=== PATIENT | female | born 1930 | race Caucasian/White ===

== ENCOUNTER → 2019-05-09 | Outpatient (CLI) | payer MEDICARE ==
--- NOTE | 2019-05-09 15:09 | US ---
EXAMINATION TYPE: US venous doppler duplex LE RT DATE OF EXAM: 05/09/2019 2:48 PM COMPARISON: NONE CLINICAL HISTORY: 88-year-old female M25.561 Pain in right knee. SIDE PERFORMED: Right TECHNIQUE: The lower extremity deep venous system is examined utilizing real time linear array sonog norman with graded compression, doppler sonography and color-flow sonography. VESSELS IMAGED: External Iliac Vein (EIV) Common Femoral Vein Deep Femoral Vein Greater Saphenous Vein * Femoral Vein Popliteal Vein Small Saphenous Vein * Proximal Calf Veins (* superficial vessels) GSV also scanned per order, negative for SVT. PTV's not seen due to edema. Right Leg: Otherwise, Negative for DVT. Preliminary results given to Dimitri at . IMPRESSION: No evidence for DVT within the right lower extremity imaged from the groin to the upper calf. Unable to adequately assess the posterior tibial veins due to soft tissue swelling.
== END | disposition home or self-care (01) ==
LOC: RADUSWWP 14:26
PROVIDERS: ATTEND Orthopaedic Surgery Sports Medicine
DX: M79.89 Other specified soft tissue disorders (principal); M17.11 Unilateral primary osteoarthritis, right knee

== ENCOUNTER 2019-06-15 06:25 | Day surgery (SDC) | payer MEDICARE ==
[~2019-06-15 06:25] MED LIST: ASPIRIN 325 MG TAB PO STA; SODIUM CHLORIDE 0.9% 1,000 ML in EMPTY BAG 1 BAG IV ONE
[2019-06-15] MEDS ORDERED: ALPRAZolam 0.25 MG TAB ONE (06:54)
[2019-06-15 07:19] LABS: Basophils # (A) 0.1 k/uL (0-0.2); Basophils % (A) 1 %; Eosinophils # (A) 0.3 k/uL (0-0.7); Eosinophils % (A) 5 %; HCT 38.6 % (34.0-46.0); Lymphocytes # (A) 1.7 k/uL (1.0-4.8); Lymphocytes % (A) 26 %; MCH 32.2 pg (25.0-35.0); MCHC 33.6 g/dL (31.0-37.0); Mean Platelet Volume 7.8; Monocytes # (A) 0.6 k/uL (0-1.0); Monocytes % (A) 9 %; Neutrophils # (A) 3.7 k/uL (1.3-7.7); Neutrophils % (A) 57 %; Platelet Count 240 k/uL (150-450); RBC 4.03 m/uL (3.80-5.40); RDW 14.9 % (11.5-15.5); WBC 6.4 k/uL (3.8-10.6)
[2019-06-15 07:39] LABS: African American GFR (CKD) >90 (>60 ml/min/1.73 sqM); Anion Gap 8 mmol/L; Blood Urea Nitrogen 20 mg/dL (7-17); Calcium 9.3 mg/dL (8.4-10.2); Carbon Dioxide 25 mmol/L (22-30); Chloride 103 mmol/L (98-107); Glucose 143 mg/dL (74-99); Non-African American GFR(CKD) 80 (>60 ml/min/1.73 sqM); Sodium 136 mmol/L (137-145)
[2019-06-15] MEDS: MIDAZOLAM PF (FBP) 2 MG/2 ML VIAL IV ONE ×3 (07:53→08:09)
[2019-06-15] MEDS ORDERED: HEPARIN SODIUM 1,000 UN/ML (10ML VL) IV ONE (07:59)
[2019-06-15] MEDS: HYDROmorphone 1 MG/ML 1 ML SYRINGE IVP ONE ×2 (08:49→08:51)
[2019-06-15] MEDS ORDERED: IOPAMIDOL-250 100ML BTL INTRAARTER ONE (09:33)
[2019-06-15] MEDS ORDERED: CLOPIDOGREL 75 MG TAB PO ONE (09:33)
[2019-06-15] MEDS ORDERED: LORATADINE 10 MG TAB PO PRN (09:35)
[2019-06-15] MEDS ORDERED: SODIUM CHLORIDE 0.9% 1,000 ML IV SCH (09:45)
--- NOTE | 2019-06-15 10:06 | AN ---
ANGIOGRAPHY REPORT PERCUTANEOUS PERIPHERAL INTERVENTION: DATE OF SERVICE: 06/15/2019 PERFORMING PHYSICIAN: Jose Angel Yost MD, Commissioned Sales Associate. PROCEDURE PERFORMED: 1. 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 2. Intravascular ultrasound IVUS of the left SFA. 3. Successful balloon angioplasty and stenting of the left SFA. 4. Selective left SFA and left popliteal angiogram. 5. Non selective left [id number]-[id number]-mhed angiogram. 6. Selective right common femoral artery angiogram. INDICATION: This is a pleasant 88-year-old female patient who sees Dr. Joaquin as well as Dr. Messer in the office as an outpatient with history of hypertension and dyslipidemia who was experiencing bilateral lower extremities intermittent claudication. The patient physically active. She is in good physical shape for her age. She continues to be symptomatic in term of intermittent claudication and the symptoms were limiting her activities. Because of that, she underwent a peripheral angiogram which revealed occluded left SFA and critical right SFA. Because of that, she was scheduled today to undergo a BALL WORKER of the left SFA. APPROACH: Right common femoral artery. COMPLICATION: None. LEVEL OF SEDATION: Moderate with sedation length of 94 minutes. PROCEDURE DESCRIPTION: After obtaining an informed consent, the patient was brought to the cardiac laboratory tech. The right common femoral artery was cannulated using micropuncture technique, and I placed initially a 6-C[place]ican 11 cm sheath. I did start anticoagulation with heparin and the patient was given 6000 units of heparin IV. Subsequently, I did select the left SFA using 0.035 Grayson Advantage wire with a 5- [place] Rim catheter. After that I did exchange my 11 cm 6-[place]ican sheath into 70 cm 6- [place] Raabe sheath. The tip of the Raabe sheath was positioned in the left common femoral artery. I did cross the chronic total occlusion of the left SFA using 018 Stata wire and a 018 morales tip Glidewire. After that, I did advance a 018 CXI catheter to the left popliteal and I did selective left popliteal angiogram to prove that I was in the true lumen. Subsequently, I did exchange my 018 gold tip Glidewire into [address] wire. I did intravascular ultrasound to assess if I was in the true lumen or not in the true lumen of the left SFA and the intravascular ultrasound showed that I was in the true lumen all the way. I did measure the diameter of the artery which is slightly above 6 mm. At that point. I did atherectomy of the left SFA using the CSI rotational atherectomy device at 1.5 mm pool. After that I did balloon angioplasty using 5 mm x 250 mm balloon. The following angiogram showed extensive area of dissection. Because of that, I decided to stent the whole SFA. I did deploy two 7 mm x 140 mm Zilver PTX stents in the distal and mid left SFA and in the proximal left SFA I placed 7 x 100 mm Zilver PTX. I post dilated the stent using 6 mm balloon with the following angiogram showing excellent angiographic results and the procedure at that point was completed without any complication. I did completion angiogram to assess below the knee and that showed great flow in the left anterior tibial artery. After that, I did exchange my long sheath into short sheath using 035 wire. I did after that selective right common femoral artery angiogram. The procedure was completed without any complication. POSTPROCEDURE MANAGEMENT: 1. Dual anti-platelet therapy. 2. Risk factors modifications. 3. Follow up with the patient. MMODL / IJN: [id number] /
--- NOTE | 2019-06-15 10:10 | IR ---
EXAMINATION TYPE: IR aircraft captain femoral popliteal DATE OF EXAM: 06/15/2019 COMPARISON: NONE HISTORY: Fluoroscopy time. Fluoroscopy was provided to the referring clinician.
[2019-06-15 12:28] VITALS: RESP 18
[2019-06-15 12:31] VITALS: BMI 28.0
[2019-06-15] MEDS: METHENAMINE HIPPURATE 1 GM PO SCH (20:42)
[2019-06-15] MEDS: VIT A,C & E-LUTEIN-MINERALS 1 EACH TAB PO SCH (20:46)
[2019-06-15] MEDS: ASPIRIN 81 MG PO SCH (20:46)
[2019-06-15] MEDS ORDERED: amLODIPine 2.5 MG TAB PO SCH (21:00)
[2019-06-16 07:00] LABS: Basophils % (A) 0 %; Eosinophils # (A) 0.2 k/uL (0-0.7); Eosinophils % (A) 2 %; HCT 38.7 % (34.0-46.0); HGB 12.7 gm/dL (11.4-16.0); Lymphocytes # (A) 1.1 k/uL (1.0-4.8); Lymphocytes % (A) 13 %; MCH 31.5 pg (25.0-35.0); MCHC 32.9 g/dL (31.0-37.0); MCV 95.9 fL (80.0-100.0); Mean Platelet Volume 7.1; Monocytes # (A) 0.6 k/uL (0-1.0); Monocytes % (A) 7 %; Neutrophils # (A) 6.6 k/uL (1.3-7.7); Neutrophils % (A) 76 %; Platelet Count 206 k/uL (150-450); RBC 4.04 m/uL (3.80-5.40); RDW 13.3 % (11.5-15.5); WBC 8.7 k/uL (3.8-10.6)
[2019-06-16 07:21] LABS: African American GFR (CKD) >90 (>60 ml/min/1.73 sqM); Anion Gap 7 mmol/L; Blood Urea Nitrogen 15 mg/dL (7-17); Calcium 8.9 mg/dL (8.4-10.2); Carbon Dioxide 25 mmol/L (22-30); Chloride 103 mmol/L (98-107); Glucose 135 mg/dL (74-99); Non-African American GFR(CKD) 81 (>60 ml/min/1.73 sqM); Sodium 135 mmol/L (137-145)
[2019-06-16] MEDS ORDERED: PANTOPRAZOLE 40 MG TABLET PO SCH (07:30)
--- NOTE | 2019-06-16 08:31 | P.PN ---
Subjective Progress Note Date: 06/16/19 Discharge note This is a pleasant 88-year-old female who follows with in the office, history of hypertension, hyperlipidemia who was experiencing bilateral lower extremity intermittent claudication, patient is physically active. She underwent a peripheral angiogram which revealed occluded left SFA and critical right SFA and because of that she was admitted to the hospital and underwent successful balloon angioplasty and stenting of the left SFA. He was seen and examined this morning, feels well, hemodynamically she is stable. White blood cell count 8.7, hemoglobin 12.7, platelet count 206. Sodium 135, potassium 4.0, BUN 15 and creatinine 0.6. Objective - Vital Signs Vital signs: Vital Signs Temp 98.1 F 06/16/19 04:00 Pulse 80 06/16/19 04:00 Resp 18 06/16/19 04:00 BP 136/75 06/16/19 04:00 Pulse Ox 97 06/16/19 04:00 Intake & Output 06/15/19 06/16/19 06/16/19 18:59 06:59 18:59 Intake Total 640 Output Total 700 Balance -60 Weight 72.2 kg Intake: IV 280 Sodium Chloride 0.9% 1, 0 000 ml @ 75 mls/hr IV . [id number] KATHIA Rx#:[id number] Oral 360 Output: Urine 700 Other: # Voids 2 - Exam PHYSICAL EXAMINATION: GENERAL: 88-year-old female in no acute distress at the time of my examination HEENT: Head is atraumatic, normocephalic. Pupils equal, round. Sclera anicteric. Conjunctiva are clear. Mucous membranes of the mouth are moist. Neck is supple. There is no elevated jugular venous pressure. No carotid bruit is heard. HEART EXAMINATION: Heart S1, S2 normal. No murmur or gallop heard. CHEST EXAMINATION: Lungs are clear to auscultation and precussion. No chest wall tenderness is noted on palpation or with deep breathing. ABDOMEN: Soft, nontender. Bowel sounds are heard. No organomegaly noted. EXTREMITIES: 2+ peripheral pulses with no evidence of peripheral edema and no calf tenderness noted. Right groin soft, no evidence of any hematoma, NEUROLOGIC patient is awake, alert and oriented 3 . . - Labs CBC & Chem 7: 06/16/19 06:43 06/16/19 06:43 Labs: Abnormal Lab Results - Last 24 Hours (Table) 06/16/19 Range/Units 06:43 Sodium 135 L (137-145) mmol/L Glucose 135 H (74-99) mg/dL Assessment and Plan Plan: Assessment and plan #1 status post successful balloon angioplasty and stenting of the left SFA #2 hypertension #3 hyperlipidemia Plan Patient will be discharged home today, she will follow-up initially with Dr. Watkins in the office, then she will follow-up with Dr. Palomino. She will be discharged home on dual antiplatelet therapy in the form of aspirin and Plavix along with her current medications. DNP note has been reviewed, I agree with a documented findings and plan of care. Patient was seen and examined.
[2019-06-16] MEDS ORDERED: METOPROLOL SUCCINATE (ER) 50 MG TAB.ER.24H PO SCH (09:00)
[2019-06-16] MEDS ORDERED: CHOLECALCIFEROL 1,000 UNIT TAB PO SCH (09:00)
[2019-06-16] MEDS ORDERED: amLODIPine 5 MG TAB PO SCH (09:00)
[2019-06-16] MEDS ORDERED: LOSARTAN 50 MG TAB PO SCH (09:00)
[2019-06-16] MEDS ORDERED: ALLOPURINOL 300 MG TAB PO SCH (09:00)
[2019-06-16] MEDS ORDERED: ISOSORBIDE MONONITRATE ER 30 MG TAB.ER.24H PO SCH (09:00)
[2019-06-16] MEDS ORDERED: CLOPIDOGREL 75 MG TAB PO SCH (09:00)
[2019-06-16] MEDS ORDERED: PRAVASTATIN SODIUM 40 MG TAB PO SCH (09:00)
[2019-06-16] MEDS ORDERED: TRIAMTERENE-HCTZ 37.5-25MG 1 EACH CAP PO SCH (09:00)
[2019-06-16] MEDS: ASPIRIN 81 MG PO SCH (09:16)
[2019-06-16] MEDS: VIT A,C & E-LUTEIN-MINERALS 1 EACH TAB PO SCH (09:17)
[2019-06-16] MEDS: METHENAMINE HIPPURATE 1 GM PO SCH (09:20)
[2019-06-16 11:20] VITALS: BP 174/74; PULSE 104; TEMP 97.1
== END 2019-06-16 10:56 | disposition home or self-care (01) ==
LOC: CATHCVL 06:25 → 3SCARD 10:57 → CATHCVL 06-16 10:56
PROVIDERS: ATTEND Internal Medicine Interventional Cardiology
DX: E11.51 Type 2 diabetes mellitus with diabetic peripheral angiopathy without gangrene (principal); I70.213 Atherosclerosis of native arteries of extremities with intermittent claudication, bilateral legs; I25.10 Atherosclerotic heart disease of native coronary artery without angina pectoris; I10 Essential (primary) hypertension; E78.5 Hyperlipidemia, unspecified; E78.00 Pure hypercholesterolemia, unspecified; Z82.49 Family history of ischemic heart disease and other diseases of the circulatory system; Z87.891 Personal history of nicotine dependence; Z79.82 Long term (current) use of aspirin; Z79.899 Other long term (current) drug therapy
CPT/HCPCS: 37227; 76937; 37252; 80048 ×2; 85025 ×2; C1894 ×2; C1714; C1769 ×7; C1725 ×2; C1753; C1874 ×2; J1644; J1170; Q9966; J2250; 37225; 37226

== ENCOUNTER → 2019-07-13 | Outpatient (CLI) | payer MEDICARE ==
[2019-07-13 10:47] LABS: HCT 38.4 % (34.0-46.0); MCH 32.4 pg (25.0-35.0); MCHC 33.8 g/dL (31.0-37.0); MCV 95.6 fL (80.0-100.0); Mean Platelet Volume 7.3; Platelet Count 231 k/uL (150-450); RBC 4.02 m/uL (3.80-5.40); RDW 13.6 % (11.5-15.5); WBC 7.4 k/uL (3.8-10.6)
[2019-07-13 10:56] LABS: Potassium 4.4 mmol/L (3.5-5.1)
== END | disposition home or self-care (01) ==
LOC: LABPAT 09:44
PROVIDERS: ATTEND Internal Medicine Interventional Cardiology
DX: Z01.812 Encounter for preprocedural laboratory examination (principal); I70.213 Atherosclerosis of native arteries of extremities with intermittent claudication, bilateral legs
CPT/HCPCS: 36415; 80051; 82565; 84520; 85027

== ENCOUNTER 2019-07-27 06:31 | Day surgery (SDC) | payer MEDICARE ==
[2019-07-26 11:48] VITALS: BMI 28.3
[~2019-07-27 06:31] MED LIST changes: +ALPRAZolam 0.25 MG TAB PO PRN
[2019-07-27] MEDS ORDERED: SODIUM CHLORIDE 0.9% 500 ML 500 ML with niCARdipine 6.25 MG, NITROGLYCERIN-D5W PMX 0.05... IV ONE ×4 (07:30)
[2019-07-27] MEDS ORDERED: LIDOCAINE 1% INJ 10MG/ML (20 ML MDV) SQ ONE (07:55)
[2019-07-27] MEDS ORDERED: MIDAZOLAM (PF) 2 MG/2 ML VIAL IV ONE (07:57)
[2019-07-27] MEDS: HEPARIN SODIUM 1,000 UN/ML (10ML VL) IV ONE ×2 (08:10→08:50)
[2019-07-27] MEDS ORDERED: ACETAMINOPHEN TAB 500 MG TAB PO PRN (09:05)
[2019-07-27] MEDS ORDERED: LORATADINE 10 MG TAB PO PRN (09:05)
[2019-07-27] MEDS ORDERED: SODIUM CHLORIDE 0.9% 1,000 ML IV SCH (09:15)
[2019-07-27] MEDS ORDERED: IOPAMIDOL-370 100ML BTL INJ ONE (09:20)
[2019-07-27] MEDS ORDERED: CLOPIDOGREL 75 MG TAB PO ONE (09:21)
--- NOTE | 2019-07-27 09:43 | IR ---
EXAMINATION TYPE: IR stent intravas non coronary DATE OF EXAM: 07/27/2019 COMPARISON: NONE HISTORY: Fluoroscopy time. Fluoroscopy was provided to the referring clinician. 37 minutes of fluoroscopy.
--- NOTE | 2019-07-27 10:08 | AN ---
ANGIOGRAPHY REPORT DATE OF SERVICE: 07/27/2019 July 27, 2019 please leave a space between. PERFORMING PHYSICIAN: Jose Angel Yost MD, liberal arts dean. PROCEDURE PERFORMED: 1. Selective right anterior tibial and right selective right anterior tibial,/popliteal,/SFA angiogram. 2. Intravascular ultrasound IVUS of the right superficial femoral artery as well as right popliteal next. 3. Balloon angioplasty and stenting of the right SFA using 7 x 140 mm Zilver PTX drug- coated stent with an excellent angiographic results and reduction of stenosis from 80% to 0%. INDICATION: This is an 88-year-old female patient with good physical and mental shape, who was experiencing bilateral lower extremities intermittent claudication and underwent a peripheral angiogram a few weeks ago and that revealed severe bilateral SFA disease. She underwent a CLASSROOM TECHNOLOGY TECHNICIAN of the left SFA and she was brought today to undergo a CLASSROOM TECHNOLOGY TECHNICIAN of the right SFA. APPROACH: 1. Right common femoral artery approach. 2. Right anterior tibial artery. COMPLICATION: None. LEVEL OF SEDATION: Moderate with sedation length of 64 minutes. PROCEDURE DESCRIPTION: After obtaining an informed consent, the patient was brought to the cardiac superintendent geophysical laboratory. The right anterior tibial artery was cannulated using micropuncture technique under ultrasound guidance, the micropuncture wire passed easily then I placed I placed a 4 5/6-Albanian sheath in the right anterior tibial artery. After that, continuous infusion with cocktail including heparin, nitroglycerin, as well as verapamil was initiated. Subsequently, I gave the patient 7000 units of heparin IV. After that I did cross the lesion of the right SFA using the 0.[address] wire. After that I did intravascular ultrasound IVUS of the right SFA and right popliteal which revealed heavily calcified plaque, which seems to be flow-limiting about 80%. After that, I did exchange my wire into a ViperWire preparing for rotational atherectomy, which was performed under low, medium, and high speed. After that I did balloon angioplasty using 5 mm balloon which revealed flow-limiting dissection in the right SFA which I decided to cover with a stent. So I deployed 7 x 140 mm Zilver PTX drug-coated stent where the stent was positioned under fluoroscopy guidance and deployed under its nominal pressure. After and deployed under fluoroscopy guidance and the stent was post dilated using 6 mm balloon. The following angiogram showed excellent angiographic results and the procedure was completed without any complication and the sheath was pulled from the right anterior tibial artery at that point. POSTPROCEDURE MANAGEMENT: 1. Dual anti-platelet therapy. 2. Risk factors modifications. 3. Follow up with the patient. MMODL / IJN: [id number] /
[2019-07-27] MEDS ORDERED: hydrALAZINE HCL 20 MG/ML 1 ML VIAL ONE (12:09)
[2019-07-27] MEDS: VIT A,C & E-LUTEIN-MINERALS 1 EACH TAB PO SCH (20:00)
[2019-07-27] MEDS ORDERED: amLODIPine 2.5 MG TAB PO SCH (21:00)
[2019-07-27] MEDS ORDERED: METHENAMINE HIPPURATE PO SCH (21:00)
[2019-07-28 06:16] LABS: Basophils # (A) 0.1 k/uL (0-0.2); Basophils % (A) 1 %; Eosinophils # (A) 0.2 k/uL (0-0.7); Eosinophils % (A) 3 %; HCT 36.5 % (34.0-46.0); HGB 12.5 gm/dL (11.4-16.0); Lymphocytes # (A) 1.1 k/uL (1.0-4.8); Lymphocytes % (A) 14 %; MCH 32.1 pg (25.0-35.0); MCHC 34.2 g/dL (31.0-37.0); MCV 93.8 fL (80.0-100.0); Mean Platelet Volume 7.6; Monocytes # (A) 0.5 k/uL (0-1.0); Monocytes % (A) 7 %; Neutrophils # (A) 5.6 k/uL (1.3-7.7); Neutrophils % (A) 74 %; Platelet Count 212 k/uL (150-450); RBC 3.89 m/uL (3.80-5.40); RDW 15.1 % (11.5-15.5); WBC 7.6 k/uL (3.8-10.6)
[2019-07-28 06:27] LABS: African American GFR (CKD) >90 (>60 ml/min/1.73 sqM); Anion Gap 5 mmol/L; Blood Urea Nitrogen 15 mg/dL (7-17); Calcium 8.8 mg/dL (8.4-10.2); Carbon Dioxide 25 mmol/L (22-30); Chloride 106 mmol/L (98-107); Glucose 129 mg/dL (74-99); Potassium 4.2 mmol/L (3.5-5.1); Sodium 136 mmol/L (137-145)
[2019-07-28] MEDS ORDERED: PANTOPRAZOLE 40 MG TABLET PO SCH (07:30)
--- NOTE | 2019-07-28 07:57 | DS ---
DISCHARGE SUMMARY ADMISSION DATE: July 27, 2019 DISCHARGE DATE: July 28, 2019 BRIEF HISTORY: This is a pleasant 88-year-old female patient who underwent yesterday successful balloon angioplasty and stenting of the right SFA with good angiographic results and without any complication. The patient was seen this morning. She is doing good. She does have a decent right dorsalis pedis pulse. She is going to be discharged home on dual antiplatelet therapy as well as statin and I will follow up with the patient next week in the office. EASTON / JOCELYN: [id number] /
[2019-07-28 08:15] VITALS: BP 131/81; PULSE 107; RESP 18; TEMP 97.9
[2019-07-28] MEDS: VIT A,C & E-LUTEIN-MINERALS 1 EACH TAB PO SCH (08:43)
[2019-07-28] MEDS ORDERED: amLODIPine 5 MG TAB PO SCH (09:00)
[2019-07-28] MEDS ORDERED: METOPROLOL SUCCINATE (ER) 50 MG TAB.ER.24H PO SCH (09:00)
[2019-07-28] MEDS ORDERED: ALLOPURINOL 300 MG TAB PO SCH (09:00)
[2019-07-28] MEDS ORDERED: ASPIRIN 81 MG PO SCH (09:00)
[2019-07-28] MEDS ORDERED: LOSARTAN 50 MG TAB PO SCH (09:00)
[2019-07-28] MEDS ORDERED: ISOSORBIDE MONONITRATE ER 30 MG TAB.ER.24H PO SCH (09:00)
[2019-07-28] MEDS ORDERED: TRIAMTERENE-HCTZ 37.5-25MG 1 EACH TAB PO SCH (09:00)
[2019-07-28] MEDS ORDERED: CHOLECALCIFEROL 1,000 UNIT TAB PO SCH (09:00)
[2019-07-28] MEDS ORDERED: CLOPIDOGREL 75 MG TAB PO SCH (09:00)
[2019-07-28] MEDS ORDERED: PRAVASTATIN SODIUM 40 MG TAB PO SCH (09:00)
== END 2019-07-28 10:15 | disposition home or self-care (01) ==
LOC: CATHCVL 06:31 → 3SCARD 08:57 → CATHCVL 07-28 10:15
PROVIDERS: ATTEND Internal Medicine Interventional Cardiology
DX: I70.211 Atherosclerosis of native arteries of extremities with intermittent claudication, right leg (principal); E11.51 Type 2 diabetes mellitus with diabetic peripheral angiopathy without gangrene; I10 Essential (primary) hypertension; E78.5 Hyperlipidemia, unspecified; Z98.62 Peripheral vascular angioplasty status; Z82.49 Family history of ischemic heart disease and other diseases of the circulatory system; Z87.891 Personal history of nicotine dependence; Z79.02 Long term (current) use of antithrombotics/antiplatelets; Z79.899 Other long term (current) drug therapy; Z79.82 Long term (current) use of aspirin
CPT/HCPCS: 37227; 37252; 80048; 85025; C1894 ×2; C1714; C1769 ×4; C1725; C1753; C1874; J0360; J1644 ×2; J2001; Q9967; J2250

== ENCOUNTER → 2020-01-11 | Outpatient (CLI) | payer MEDICARE ==
[2020-01-11 14:55] LABS: HGB 12.6 gm/dL (11.4-16.0); MCH 31.9 pg (25.0-35.0); MCHC 33.1 g/dL (31.0-37.0); MCV 96.3 fL (80.0-100.0); Mean Platelet Volume 7.7; Platelet Count 258 k/uL (150-450); RBC 3.95 m/uL (3.80-5.40); RDW 12.8 % (11.5-15.5); WBC 8.4 k/uL (3.8-10.6)
[2020-01-11 14:57] LABS: Albumin 3.7 g/dL (3.5-5.0); Calcium 9.3 mg/dL (8.4-10.2); Potassium 4.1 mmol/L (3.5-5.1); Total Bilirubin 0.5 mg/dL (0.2-1.3); Total Protein 6.3 g/dL (6.3-8.2)
[2020-01-11 15:11] LABS: Partial Thromboplastin Time 22.7 sec (22.0-30.0); Prothrombin Time 10.3 sec (9.0-12.0)
== END | disposition home or self-care (01) ==
LOC: LABPAT 13:53
PROVIDERS: ATTEND Orthopaedic Surgery
DX: Z01.818 Encounter for other preprocedural examination (principal); M17.11 Unilateral primary osteoarthritis, right knee
CPT/HCPCS: 80053; 85027; 85610; 85730; 87070

== ENCOUNTER → 2020-04-23 | Outpatient (CLI) | payer MEDICARE ==
[2020-04-23 13:13] LABS: HCT 41.1 % (34.0-46.0); HGB 13.7 gm/dL (11.4-16.0); MCH 33.2 pg (25.0-35.0); MCHC 33.3 g/dL (31.0-37.0); MCV 99.7 fL (80.0-100.0); Mean Platelet Volume 7.8; Platelet Count 271 k/uL (150-450); RBC 4.13 m/uL (3.80-5.40); RDW 13.8 % (11.5-15.5)
[2020-04-23 13:27] LABS: Albumin 4.1 g/dL (3.5-5.0); Calcium 9.7 mg/dL (8.4-10.2); Potassium 3.9 mmol/L (3.5-5.1); Total Bilirubin 0.7 mg/dL (0.2-1.3); Total Protein 6.7 g/dL (6.3-8.2)
[2020-04-23 13:31] LABS: Bacteria,Urine Rare /hpf; Mucus,Urine Rare /hpf; RBC,Urine 2 /hpf (0-5); Squamous Epithelial Cell,Urine 8 /hpf (0-4); WBC,Urine 9 /hpf (0-5)
[2020-04-23 13:35] LABS: Appearance,Urine Slightly Cloudy (Clear); Color,Urine Yellow; Specific Gravity,Urine 1.005 (1.001-1.035)
[2020-04-23 13:36] LABS: Bilirubin,Urine Negative (Negative); Blood,Urine Negative (Negative); Glucose,Urine (UA) Negative (Negative); Ketones,Urine Negative (Negative); Leukocyte Esterase,Urine Moderate (Negative); Nitrite,Urine Negative (Negative); Protein,Urine Negative (Negative)
[2020-04-23 13:37] LABS: Partial Thromboplastin Time 23.5 sec (22.0-30.0)
== END | disposition home or self-care (01) ==
LOC: LABPAT 11:27
PROVIDERS: ATTEND Orthopaedic Surgery
DX: Z01.818 Encounter for other preprocedural examination (principal); Z01.812 Encounter for preprocedural laboratory examination; Z51.81 Encounter for therapeutic drug level monitoring; Z79.01 Long term (current) use of anticoagulants
CPT/HCPCS: 36415; 80053; 81001; 85027; 85610; 85730; 87070

== ENCOUNTER 2020-05-01 05:36 | Day surgery (SDC) | payer MEDICARE ==
[2020-04-27 12:19] VITALS: BMI 27.4
[~2020-05-01 05:36] MED LIST changes: +ACETAMINOPHEN TAB 500 MG TAB PO ONE; -ALPRAZolam 0.25 MG TAB PO PRN; -ASPIRIN 325 MG TAB PO STA; +GABAPENTIN 300 MG CAP PO ONE; +MELOXICAM 7.5 MG TAB PO ONE; +Pre Op ABX Message 1 EACH MISC MISCELLANE ONE; -SODIUM CHLORIDE 0.9% 1,000 ML in EMPTY BAG 1 BAG IV ONE; +TRANEXAMIC ACID 1,000 MG in SODIUM CHLORIDE 0.9% 100 ML IVPB ONE
[2020-05-01] MEDS ORDERED: DEXAMETHASONE SOD PHOSPHATE 10 MG/ML 1 ML VIAL IV ONE (05:41)
[2020-05-01] MEDS ORDERED: HYDROmorphone 0.5 MG/0.5 ML SYRINGE IVP PRN ×4 (05:41→09:21)
[2020-05-01] MEDS ORDERED: ONDANSETRON 4 MG/2 ML VIAL IVP ONE (05:41)
[2020-05-01] MEDS ORDERED: ACETAMINOPHEN TAB 500 MG TAB ONE (06:04)
[2020-05-01] MEDS ORDERED: ONDANSETRON 4 MG/2 ML VIAL ONE (06:08)
[2020-05-01] MEDS: LACTATED RINGERS 1,000 ML IV SCH (06:18)
[2020-05-01] MEDS ORDERED: MIDAZOLAM 2 MG/2 ML VIAL IV ONE (06:31)
[2020-05-01] MEDS ORDERED: PROPOFOL 10 MG/ML 20 ML VIAL IV ONE (06:58)
[2020-05-01] MEDS ORDERED: SODIUM CHLORIDE 0.9% 100 ML BAG ONE (06:58)
[2020-05-01] MEDS ORDERED: TRANEXAMIC ACID 1,000 MG/10 ML VIAL ONE (06:58)
[2020-05-01] MEDS ORDERED: MIDAZOLAM 2 MG/2 ML VIAL ONE (06:58)
[2020-05-01] MEDS ORDERED: ceFAZolin 3,000 MG in SODIUM CHLORIDE 0.9% IRRIGATIO 3,000 ML IRRIGATION ONE (07:00)
[2020-05-01] MEDS: ROPIVACAINE 246.25 MG, EPINEPHrine 0.5 MG, KETOROLAC 30 MG, cloNIDine HCL/PF 80 MCG, WA... MISCELLANE ONE ×10 (07:35→08:05)
--- NOTE | 2020-05-01 07:41 | P.ANPRN ---
Procedure Note - Anesthesia - Nerve Block Performed Right Adductor Canal Time Out Performed: Yes Date of Procedure: 05/01/20 Procedure Start Time: 07:35 Procedure Stop Time: 07:45 Location of Patient: PreOp Indication: Acute Post-Operative Pain, Requested by Surgeon Specifically requested for management of pain by : Jus Cole Sedation Type: Sedate with meaningful contact maintained Preparation: Sterile Prep, Sterile Dressing Position: Supine Catheter: Indwelling Needle Types: Pajunk Needle Gauge: 18, 21 Ultrasound used to visualize needle placement: Yes Ultrasound used to observe medication spread: Yes Injectate: 0.5% Ropivacaine (see comment for volume) Narrative: 20 ml of block solution Blood Aspirated: No Pain Paresthesia on Injection Noted: No Resistance on Injection: Normal Image Stored and Saved: Yes Events: Uneventful and Well Tolerated
--- NOTE | 2020-05-01 08:39 | P.OP ---
Date of Procedure: 05/01/20 Preoperative Diagnosis: Severe osteoarthritis right knee Postoperative Diagnosis: Severe osteoarthritis right knee Procedure(s) Performed: Right total knee arthroplasty Implants: Mckeon and Nephew Journey II CR Oxinium bicruciate stabilized femoral component size 3, right Mckeon & Nephew Journey right nonporous tibial baseplate size 3 Mckeon & Nephew Journey II, XLPE constrained articular insert, size 10 mm, Size 3-4 right Mckeon & Nephew Journey BCS resurfacing round patellar component, 29 mm All components were cemented using Palacos R bone cement.. The articulation is Oxinium on polyethylene. Anesthesia: spinal Surgeon: Jus Cole Drywall Professional #1: Debra Flores Estimated Blood Loss (ml): 30 Pathology: other (Bone and cartilage) Condition: stable Disposition: PACU Indications for Procedure: After failure of conservative treatment we discussed the surgical and nonsurgical treatment options at length. Patient wishes to proceed with a total knee arthroplasty. Complications specific to this procedure were discussed at length, including but not limited to infection, bleeding, stiffness, and nerve injury. Covid-19 was also discussed at length with the patient, and they are aware of the current policies and procedures. The patient was given the option of delaying surgery, but they elect to proceed knowing these risks. Patient is aware of all these complications and informed consent was obtained Operative Findings: The operative findings are consistent with severe osteoarthritis of the right knee with significant valgus deformity Description of Procedure: Patient was seen in the preoperative area consent was reviewed and operative site was marked with a skin marker. Patient was then brought to the operating room and given preoperative antibiotics intravenously. A spinal anesthetic was administered by the anesthesia department. A tourniquet was placed on the upper thigh and the lower extremity was prepped and draped in usual sterile fashion. A gram of transexamic acid was given. A universal timeout was then performed which confirmed the patient's name, surgical site, ALLERGIES, and consent. The lower extremity was then exsanguinated and tourniquet was inflated to 250 mmHg. A standard and anterior midline approach to the knee was performed. The skin and subcutaneous tissue was dissected down to the patellar tendon. A medial parapatellar arthrotomy was then performed. The knee was then extended, the patellar was everted, and the knee was again flexed. Anterior horns of both menisci were excised, and a minimal medial release was performed because of the valgus deformity of the knee.. On gross visual inspection, there was complete loss of articular cartilage in all 3 compartments of the knee. There was also significant cartilage damage in the lateral compartment. There were multiple periarticular osteophytes which were then removed with a Ronguer. The femoral canal was then opened with the appropriate drill, and the intramedullary femoral cutting guide was then placed and set for 4 of valgus. The distal femoral cutting block was then pinned in place, and the distal femur was then cut. The cutting block was then removed and the cut was checked for flatness. Next, the sizing guide was then placed and set for 3 external rotation based off of the epicondylar axis and Whitesides line. After the femur was sized, the appropriate 4-in-1 cutting block was then pinned in place. The anterior condyles were cut without notching. The posterior and chamfer cuts were performed while protecting the collateral ligaments. The cutting block was then removed. Attention was then directed to the tibia. The remaining ACL was removed with a Ronguer, and the tibia was then gently subluxed forward with a large bent knee retractor. Any remaining menisci was excised. The posterior lateral corner was cauterized in order to cauterize the lateral geniculate artery. The extra medullary tibial cutting guide was then placed, set for the appropriate rotation, slope, and depth of resection. The proximal tibia cutting guide was then pinned in place. Proximal tibia was then cut and sized. The femoral trial was then placed. The box cutting guide was placed and then using the appropriate reamer, the bone was reamed for the box. Then the box osteotome was used to finish the reaming. Next trials were then placed with the appropriate-sized insert. The knee was able to fully extend and flex to 130 and was stable throughout all range of motion. The knee was then extended, patella everted. Patella was then measured, and then using an osteotomy guide, the patella was cut at the appropriate level. The patella was then measured and drilled and the patella trial was then placed. The knee was then taken through range of motion with the patella trial and the patella tracked normally. The knee was then extended patella trial was then removed and the patella was everted. Knee was then flexed and lug holes were drilled through the femoral trial and the femoral trial was then removed. The tibial was then exposed, and the tibial broach guide was then pinned in place after it was set for the appropriate rotation to allow for the most coverage without overhang. The tibia was then broached. The cut surfaces of bone were then irrigated with pulsatile lavage. The posterior structures were injected with the ropivacaine solution. The components were then opened, the cement was mixed, and the components were then cemented in place. The cement was allowed to harden with the knee in full extension. While the cement was hardening, the remaining soft tissues were injected with the ropivacaine solution. After the cemented hardened. The tourniquet was released, and hemostasis was obtained. A second gram of transexamic acid was given. The knee was again irrigated. The knee was again taken through range of motion and found to be stable throughout all range of motion of 0-130, and the patella tracked normally. The fascia was then closed with #2 strata fix suture. The subcutaneous tissue was closed with 3-0 Vicryl and 3-0 strata fix. Dermabond tape was used for the skin, and the patient was placed in a sterile dressing. Patient was then transferred to recovery room in stable condition. The assistant portfolio manager EBONIE Galindo was required due the complexity surgery and the need for a skilled surgical services coordinator. She assisted in positioning, draping, retraction, and closure of the woundclosure of the wound.
[2020-05-01] MEDS ORDERED: ROPIVACAINE 0.2%-NS ON-Q PUMP 1,090 MG, EMPTY PAIN BALL 1 EACH MISCELLANE PRN (08:58)
[2020-05-01] MEDS ORDERED: bisacodyL 10 MG SUPP RECTAL PRN (09:21)
[2020-05-01] MEDS ORDERED: NALOXONE 0.4 MG/ML 1 ML VIAL IV PRN (09:21)
[2020-05-01] MEDS ORDERED: ONDANSETRON 4 MG/2 ML VIAL IVP PRN (09:21)
[2020-05-01] MEDS ORDERED: NA PHOS,M-B/NA PHOS,DI-BA 133 ML ENEMA RECTAL PRN (09:21)
[2020-05-01] MEDS ORDERED: MAGNESIUM HYDROXIDE 2,400 MG/10 ML CUP PO PRN (09:21)
[2020-05-01] MEDS ORDERED: HYDROcodone/APAP 5-325MG 1 EACH TAB PO PRN (09:21)
--- NOTE | 2020-05-01 09:29 | XR ---
EXAMINATION TYPE: XR knee limited RT DATE OF EXAM: 05/01/2020 CLINICAL HISTORY: pain TECHNIQUE: Two views of the right knee are obtained. COMPARISON: None. FINDINGS: There is no acute fracture/dislocation. Total knee arthroplasty in place. The overlying so ft tissue appears unremarkable. IMPRESSION: There is no acute fracture or dislocation.ICD 10 NO FRACTURE, INITIAL EVALUATION
[2020-05-01] MEDS ORDERED: traMADol 50 MG TAB PO PRN (18:31)
[2020-05-01] MEDS ORDERED: ACETAMINOPHEN TAB 500 MG TAB PO PRN (18:31)
[2020-05-01] MEDS: PANTOPRAZOLE 40 MG TABLET PO SCH (20:03)
[2020-05-01] MEDS: METOPROLOL SUCCINATE (ER) 50 MG TAB.ER.24H PO SCH (20:06)
[2020-05-01] MEDS: SODIUM CHLORIDE 0.9% 1,000 ML IV SCH (20:18)
[2020-05-01] MEDS: VIT A,C & E-LUTEIN-MINERALS 1 EACH TAB PO SCH (20:57)
[2020-05-01] MEDS: amLODIPine 2.5 MG TAB PO SCH (20:57)
[2020-05-01] MEDS ORDERED: ASPIRIN 81 MG PO SCH (21:00)
[2020-05-01] MEDS ORDERED: SENNOSIDES-DOCUSATE SODIUM 1 EACH TAB PO SCH (21:00)
[2020-05-01] MEDS: HYDROcodone/APAP 5-325MG 1 EACH TAB PO PRN (22:40)
[2020-05-02] MEDS: HYDROcodone/APAP 5-325MG 1 EACH TAB PO PRN ×2 (04:41→10:13)
[2020-05-02] MEDS: SODIUM CHLORIDE 0.9% 1,000 ML IV SCH (04:49)
[2020-05-02] MEDS: LACTATED RINGERS 1,000 ML IV SCH (06:10)
[2020-05-02 06:46] LABS: Basophils % (A) 0 %; Eosinophils % (A) 0 %; HCT 33.5 % (34.0-46.0); HGB 11.3 gm/dL (11.4-16.0); Lymphocytes # (A) 1.1 k/uL (1.0-4.8); Lymphocytes % (A) 9 %; MCH 33.5 pg (25.0-35.0); MCHC 33.8 g/dL (31.0-37.0); Mean Platelet Volume 7.9; Monocytes # (A) 0.7 k/uL (0-1.0); Monocytes % (A) 7 %; Neutrophils # (A) 9.2 k/uL (1.3-7.7); Neutrophils % (A) 83 %; Platelet Count 197 k/uL (150-450); RBC 3.39 m/uL (3.80-5.40); RDW 13.6 % (11.5-15.5); WBC 11.1 k/uL (3.8-10.6)
[2020-05-02 06:54] LABS: ALT 31 U/L (4-34); AST 49 U/L (14-36); African American GFR (CKD) >90 (>60 ml/min/1.73 sqM); Alkaline Phosphatase 94 U/L (38-126); Anion Gap 6 mmol/L; Blood Urea Nitrogen 20 mg/dL (7-17); Calcium 8.7 mg/dL (8.4-10.2); Carbon Dioxide 24 mmol/L (22-30); Chloride 106 mmol/L (98-107); Glucose 145 mg/dL (74-99); Non-African American GFR(CKD) 78 (>60 ml/min/1.73 sqM); Potassium 4.2 mmol/L (3.5-5.1); Sodium 136 mmol/L (137-145); Total Bilirubin 0.6 mg/dL (0.2-1.3); Total Protein 5.2 g/dL (6.3-8.2)
[2020-05-02 07:14] VITALS: RESP 18; TEMP 97.6
--- NOTE | 2020-05-02 07:19 | P.PN ---
Progress Note - Text Progress Note Date: 05/02/20 Patient was seen and evaluated and bedside. Postoperative day one status post right total knee arthroplasty. Patient is rating his pain level 3-4 out of 10 at rest. Patient rating his pain levels 5-6 with activity. Patient denied any side effects with catheter medications. Able to participate active physical therapy without any problem . Physical exam: Vitals stable, afebrile. Catheter intact with dressing. No redness/swelling. No leaking fluid around the catheter. No tenderness over the catheter placement area. Plan: Continue current catheter flow rate.
[2020-05-02] MEDS: VIT A,C & E-LUTEIN-MINERALS 1 EACH TAB PO SCH (08:15)
[2020-05-02] MEDS: PANTOPRAZOLE 40 MG TABLET PO SCH (08:40)
[2020-05-02] MEDS: METOPROLOL SUCCINATE (ER) 50 MG TAB.ER.24H PO SCH (08:41)
[2020-05-02] MEDS ORDERED: TRIAMTERENE-HCTZ 37.5-25MG 1 EACH CAP PO SCH (09:00)
[2020-05-02] MEDS ORDERED: ASPIRIN 81 MG PO SCH ×2 (09:00→21:00)
[2020-05-02] MEDS ORDERED: allopurinoL 300 MG TAB PO SCH (09:00)
[2020-05-02] MEDS ORDERED: LOSARTAN 50 MG TAB PO SCH (09:00)
[2020-05-02] MEDS ORDERED: TRIMETHOPRIM 100 MG TAB PO SCH (09:00)
[2020-05-02] MEDS ORDERED: CLOPIDOGREL 75 MG TAB PO SCH (09:00)
[2020-05-02] MEDS ORDERED: ISOSORBIDE MONONITRATE ER 30 MG TAB.ER.24H PO SCH (09:00)
--- NOTE | 2020-05-02 09:09 | P.DS ---
Providers Expected date of discharge: 05/02/20 Attending physician: Jus Cole Consults: 05/01/20 09:21 Consult Physician Routine Consulting Provider: Cora Joaquin Consult Reason/Comments: medical management Do you want consulting provider notified?: Yes Primary care physician: Cora Joaquin - Discharge Diagnosis(es) (1) Primary osteoarthritis of right knee Current Visit: Yes Status: Acute (2) S/P total knee arthroplasty Current Visit: Yes Status: Acute Hospital Course: This is a 89-year-old female with known history of degenerative arthritis of the right knee. The patient presents for evaluation. After discussion and consideration patient elects to proceed with total knee arthroplasty. The patient is seen preoperatively by Dr. Cole and medically cleared for surgery by their primary care physician. Patient is admitted to [facility] on 05/01/2020 for total knee arthroplasty. The procedures performed without complication or sequelae. The patient is doing well postoperatively. Labs and vital signs are stable on day of discharge. On day of discharge patient's knee incision is healing well. There is minimal erythema. There is no drainage noted at this time. There is minimal soft tissue swelling to the knee. Patient has full foot and ankle motion without difficulty or pain. Calf is soft and nontender to palpation. Neurovascular status to the right lower extremity is intact. Patient is discharged back to her assisted living facility in good condition. Opioid start talking form is reviewed and signed at patient bedside. Please see med rec for accurate list of home medications. Plan - Discharge Summary Discharge Rx Participant: No New Discharge Prescriptions: New Aspirin [Adult Low Dose Aspirin EC] 81 mg PO BID 30 Days #60 tablet. HYDROcodone/APAP 5-325MG [[place] 5-325] 1 tab PO Q6HR PRN #30 tab PRN Reason: Pain Sennosides [Senokot] 2 tab PO DAILY PRN #60 tablet PRN Reason: Constipation No Action Cholecalciferol (Vitamin D3) [Vitamin D3] 2,000 unit PO DAILY amLODIPine BESYLATE [Norvasc] 2.5 mg PO BID Metoprolol Succinate (ER) [Toprol XL] 50 mg PO DAILY Allopurinol [Zyloprim] 300 mg PO DAILY Triamterene-Hctz 37.5-25Mg [Dyazide 37.5-25 Capsule] 1 cap PO DAILY Losartan Potassium [Cozaar] 100 mg PO DAILY Isosorbide Mononitrate ER [Imdur] 30 mg PO DAILY Vit C/E/Zn/Coppr/Lutein/Zeaxan [Preservision Areds 2 Softgel] 1 each PO BID Omeprazole [PriLOSEC] 20 mg PO AC-BRKFST Fexofenadine HCl [Carisa Allergy] 180 mg PO DAILY Clopidogrel [Plavix] 75 mg PO DAILY #30 tab Aspirin EC [Ecotrin Low Dose] 81 mg PO DAILY #30 tablet. Acetaminophen Tab [Tylenol Tab] 500 mg PO Q6HR PRN PRN Reason: Pain Easy Fiber 1 tsp PO DAILY Rosuvastatin [Crestor] 20 mg PO 1800 traMADol HCl [Ultram] 50 mg PO Q8HR PRN PRN Reason: Pain Trimethoprim [Trimpex] 100 mg PO DAILY Discharge Medication List Allopurinol [Zyloprim] 300 mg PO DAILY 06/10/19 [History] Cholecalciferol (Vitamin D3) [Vitamin D3] 2,000 unit PO DAILY 06/10/19 [History] Fexofenadine HCl [Carisa Allergy] 180 mg PO DAILY 06/10/19 [History] Isosorbide Mononitrate ER [Imdur] 30 mg PO DAILY 06/10/19 [History] Losartan Potassium [Cozaar] 100 mg PO DAILY 06/10/19 [History] Metoprolol Succinate (ER) [Toprol XL] 50 mg PO DAILY 06/10/19 [History] Omeprazole [PriLOSEC] 20 [facility] 06/10/19 [History] Triamterene-Hctz 37.5-25Mg [Dyazide 37.5-25 Capsule] 1 cap PO DAILY 06/10/19 [History] Vit C/E/Zn/Coppr/Lutein/Zeaxan [Preservision Areds 2 Softgel] 1 each PO BID 06/10/19 [History] amLODIPine BESYLATE [Norvasc] 2.5 mg PO BID 06/10/19 [History] Aspirin EC [Ecotrin Low Dose] 81 mg PO DAILY #30 tablet. 06/16/19 [Rx] Clopidogrel [Plavix] 75 mg PO DAILY #30 tab 06/16/19 [Rx] Acetaminophen Tab [Tylenol Tab] 500 mg PO Q6HR PRN 07/27/19 [History] Easy Fiber 1 tsp PO DAILY 04/27/20 [History] Rosuvastatin [Crestor] 20 mg PO 1800 04/27/20 [History] Trimethoprim [Trimpex] 100 mg PO DAILY 04/27/20 [History] traMADol HCl [Ultram] 50 mg PO Q8HR PRN 04/27/20 [History] Aspirin [Adult Low Dose Aspirin EC] 81 mg PO BID 30 Days #60 tablet. 05/02/20 [Rx] HYDROcodone/APAP 5-325MG [[place] 5-325] 1 tab PO Q6HR PRN #30 tab 05/02/20 [Rx] Sennosides [Senokot] 2 tab PO DAILY PRN #60 tablet 05/02/20 [Rx] Follow up Appointment(s)/Referral(s): Jus Cole DO [Doctor of Osteopathic Medicine] - 05/16/20 2:20 pm Activity/Diet/Wound Care/Special Instructions: Weightbearing as tolerated with a walker. CPM 5-6h daily. Leave dressing intact. May be removed by home care nurse or by patient in 10 days. May shower with dressing on. Aspirin 81mg BID for DVT prophylaxis. Continue Plavix. Recommend use of compression stockings daily until follow up to help prevent swelling and blood clots. May remove at night before sleeping. Please follow up with [facility] and call with any questions or concerns, . Discharge Disposition: HOME WITH HOME HEALTH SERVICES
[2020-05-02 09:42] VITALS: PULSE 88
--- NOTE | 2020-05-02 10:22 | P.CONS ---
History of Present Illness - Reason for Consult Consult date: 05/01/20 - History of Present Illness Avis Emanuel, is an 89-year-old female, who was admitted to [facility] by Dr. Jus Arreola due to severe osteoarthritis of the right knee and underwent right total knee arthroplasty, consultation was requested for medical management while hospitalized. Patient has a known history of hypertension, hyperlipidemia, gastroesophageal reflux disease, gout and peripheral vascular disease requiring angioplasty. Patient was seen and examined on the medical floor post surgery, she is alert and oriented 3 she denies any complaints at this time, there is no fever or chills no headache or dizziness no chest pain no shortness of breath no cough no nausea or vomiting no abdominal pain no diarrhea no blood in the stools no burning with urination no frequency or urgency and no hematuria. Past Medical History Past Medical History: Eye Disorder, GERD/Reflux, Hyperlipidemia, Hypertension, Osteoarthritis (OA), Vascular Disorder Additional Past Medical History / Comment(s): macular degeneration jeff eyes. Jeff leg peripheral stent 07/2019. Borderline DM. 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 Past Anesthesia/Blood Transfusion Reactions: No Reported Reaction Past Psychological History: No Psychological Hx Reported Smoking Status: Former smoker Past Alcohol Use History: Rare Additional Past Alcohol Use History / Comment(s): smoked for 10 years, <1ppd, quit 1957 Past Drug Use History: None Reported - Past Family History Sister(s) Family Medical History: Cancer Medications and Allergies Home Medications Medication Instructions Recorded Confirmed Type Allopurinol [Zyloprim] 300 mg PO DAILY 06/10/19 04/27/20 History Cholecalciferol (Vitamin D3) 2,000 unit PO DAILY 06/10/19 04/27/20 History [Vitamin D3] Fexofenadine HCl [Carisa Allergy] 180 mg PO DAILY 06/10/19 04/27/20 History Isosorbide Mononitrate ER [Imdur] 30 mg PO DAILY 06/10/19 04/27/20 History Losartan Potassium [Cozaar] 100 mg PO DAILY 06/10/19 04/27/20 History Metoprolol Succinate (ER) [Toprol 50 mg PO DAILY 06/10/19 04/27/20 History XL] Omeprazole [PriLOSEC] 20 mg PO AC-BRKFST 06/10/19 04/27/20 History Triamterene-Hctz 37.5-25Mg 1 cap PO DAILY 06/10/19 04/27/20 History [Dyazide 37.5-25 Capsule] Vit C/E/Zn/Coppr/Lutein/Zeaxan 1 each PO BID 06/10/19 04/27/20 History [Preservision Areds 2 Softgel] amLODIPine BESYLATE [Norvasc] 2.5 mg PO BID 06/10/19 04/27/20 History Aspirin EC [Ecotrin Low Dose] 81 mg PO DAILY #30 tablet. 06/16/19 04/27/20 Rx Clopidogrel [Plavix] 75 mg PO DAILY #30 tab 06/16/19 04/27/20 Rx Acetaminophen Tab [Tylenol Tab] 500 mg PO Q6HR PRN 07/27/19 04/27/20 History Easy Fiber 1 tsp PO DAILY 04/27/20 History Rosuvastatin [Crestor] 20 mg PO 1800 04/27/20 04/27/20 History Trimethoprim [Trimpex] 100 mg PO DAILY 04/27/20 04/27/20 History traMADol HCl [Ultram] 50 mg PO Q8HR PRN 04/27/20 04/27/20 History Aspirin [Adult Low Dose Aspirin EC] 81 mg PO BID 30 Days #60 tablet. 05/02/20 Rx HYDROcodone/APAP 5-325MG [[place] 1 tab PO Q6HR PRN #30 tab 05/02/20 Rx 5-325] Sennosides [Senokot] 2 tab PO DAILY PRN #60 tablet 05/02/20 Rx Allergies Allergy/AdvReac Type Severity Reaction Status Date / Time No Known Allergies Allergy Verified 04/27/20 11:34 Physical Exam Vitals: Vital Signs Temp Pulse Pulse Resp BP BP Pulse Ox 05/01/20 16:00 18 05/01/20 14:21 97.5 F L 105 H 18 122/67 92 L 05/01/20 12:30 97.7 F 108 H 18 148/74 94 L 05/01/20 11:50 103 H 16 143/64 95 05/01/20 11:20 104 H 16 145/72 94 L 05/01/20 10:50 105 H 16 126/61 95 05/01/20 10:35 101 H 16 128/55 93 L 05/01/20 10:20 103 H 16 124/64 91 L 05/01/20 10:05 97 16 137/62 94 L 05/01/20 09:50 93 16 135/61 96 05/01/20 09:35 92 16 129/70 92 L 05/01/20 09:20 93 16 131/63 94 L 05/01/20 09:05 87 16 137/64 95 05/01/20 08:52 97.6 F 91 14 148/65 98 05/01/20 06:45 93 18 176/82 96 05/01/20 06:20 97.9 F 87 20 185/86 97 Intake and Output 05/01/20 05/01/20 05/01/20 06:59 14:59 22:59 Intake Total 300 837 456 Output Total 380 400 Balance 300 457 56 Intake: IV 300 601 Oral 236 456 Output: Urine 350 400 Estimated Blood Loss 30 Other: Weight 71.3 kg 71.3 kg In general patient is alert and oriented 3 in no apparent distress HEENT head normocephalic and atraumatic Neck is supple no JVD no goiter no lymphadenopathy no carotid bruit Chest exam reveals a clear respiratory sounds no crackles no wheezing Cardiac exam reveals regular heart sounds S1 and S2 no gallops no murmurs Abdomen is soft nontender no organomegaly with normal bowel sounds Extremity exam reveals no edema no cyanosis or clubbing Neurological examination reveals no gross focal deficit Results CBC & Chem 7: 05/02/20 05:53 05/02/20 05:53 Assessment and Plan Plan: 1. Advanced osteoarthritis of the right knee status post right total knee arthroplasty, pain management and DVT prophylaxis as per orthopedic protocol 2. Underlying history of hypertension well-controlled on medications continue 3. Underlying history of hyperlipidemia 4. Underlying history of peripheral vascular disease maintained on Plavix will resume in a.m. 5. Underlying history of gout Medication and labs were reviewed and reordered Will follow during this admission for medical management
[2020-05-02 11:57] VITALS: BP 128/77
[2020-05-02] MEDS ORDERED: CHOLECALCIFEROL 1,000 UNIT TAB PO SCH (12:00)
[2020-05-02] MEDS: amLODIPine 2.5 MG TAB PO SCH (12:08)
--- NOTE | 2020-05-02 12:22 | P.PN ---
Subjective Progress Note Date: 05/02/20 Avis Emanuel, is an 89-year-old female, who was admitted to [facility] by Dr. Jus Arreola due to severe osteoarthritis of the right knee and underwent right total knee arthroplasty, consultation was requested for medical management while hospitalized. Patient has a known history of hypertension, hyperlipidemia, gastroesophageal reflux disease, gout and peripheral vascular disease requiring angioplasty. Patient was seen and examined on the medical floor post surgery, she is alert and oriented 3 she denies any complaints at this time, there is no fever or chills no headache or dizziness no chest pain no shortness of breath no cough no nausea or vomiting no abdominal pain no diarrhea no blood in the stools no burning with urination no frequency or urgency and no hematuria. On 05/02/2020 patient was seen and examined on the medical floor she is alert and oriented 3 in no apparent distress there is no fever or chills no headache or dizziness no chest pain no shortness of breath no cough no nausea or vomiting no abdominal pain no diarrhea no burning with urination no frequency or urgency no hematuria. Patient was able to ambulate with a walker she is scheduled for d ischarge home today. Objective - Vital Signs Vital signs: Vital Signs Temp 97.6 F 05/02/20 07:00 Pulse 88 05/02/20 08:00 Resp 18 05/02/20 08:00 BP 111/63 05/02/20 07:00 Pulse Ox 96 05/02/20 07:00 Intake & Output 05/01/20 05/02/20 05/02/20 18:59 06:59 18:59 Intake Total 1293 240 Output Total 780 Balance 513 240 Weight 71.3 kg Intake: IV 601 Oral 692 240 Output: Urine 750 Estimated Blood Loss 30 Other: # Voids 1 - Exam In general patient is alert and oriented 3 in no apparent distress HEENT head normocephalic and atraumatic Neck is supple no JVD no goiter no lymphadenopathy no carotid bruit Chest exam reveals a clear respiratory sounds no crackles no wheezing Cardiac exam reveals regular heart sounds S1 and S2 no gallops no murmurs Abdomen is soft nontender no organomegaly with normal bowel sounds Extremity exam reveals no edema no cyanosis or clubbing Neurological examination reveals no gross focal deficit - Labs CBC & Chem 7: 05/02/20 05:53 05/02/20 05:53 Labs: Abnormal Lab Results - Last 24 Hours (Table) 05/02/20 05/02/20 Range/Units 05:53 05:53 WBC 11.1 H (3.8-10.6) k/uL RBC 3.39 L (3.80-5.40) m/uL Hgb 11.3 L (11.4-16.0) gm/dL Hct 33.5 L (34.0-46.0) % Neutrophils # 9.2 H (1.3-7.7) k/uL Sodium 136 L (137-145) mmol/L BUN 20 H (7-17) mg/dL Glucose 145 H (74-99) mg/dL AST 49 H (14-36) U/L Total Protein 5.2 L (6.3-8.2) g/dL Albumin 3.0 L (3.5-5.0) g/dL Assessment and Plan Plan: 1. Advanced osteoarthritis of the right knee status post right total knee arthroplasty, pain management and DVT prophylaxis as per orthopedic protocol 2. Underlying history of hypertension well-controlled on medications continue 3. Underlying history of hyperlipidemia 4. Underlying history of peripheral vascular disease maintained on Plavix will resume in a.m. 5. Underlying history of gout Medication and labs were reviewed and reordered Will follow during this admission for medical management Patient is scheduled for discharge home today no medical contraindication for discharge will follow in the office as needed in the next 1-2 weeks
[2020-05-02] MEDS ORDERED: ATORVASTATIN 40 MG TAB PO SCH (18:00)
== END 2020-05-02 13:23 | disposition home health service (06) ==
LOC: OR 05:36 → 6PED 08:50 → OR 05-02 13:23
PROVIDERS: ATTEND Orthopaedic Surgery
DX: M17.11 Unilateral primary osteoarthritis, right knee (principal); M25.761 Osteophyte, right knee; K21.9 Gastro-esophageal reflux disease without esophagitis; E78.5 Hyperlipidemia, unspecified; I10 Essential (primary) hypertension; M10.9 Gout, unspecified; H35.30 Unspecified macular degeneration; E11.9 Type 2 diabetes mellitus without complications; I47.1 Supraventricular tachycardia; M81.0 Age-related osteoporosis without current pathological fracture; E55.9 Vitamin D deficiency, unspecified; Z97.3 Presence of spectacles and contact lenses; Z79.899 Other long term (current) drug therapy; Z79.82 Long term (current) use of aspirin; Z79.83 Long term (current) use of bisphosphonates; Z79.02 Long term (current) use of antithrombotics/antiplatelets; Z79.891 Long term (current) use of opiate analgesic; Z90.710 Acquired absence of both cervix and uterus; Z98.890 Other specified postprocedural states; Z87.891 Personal history of nicotine dependence; Z95.820 Peripheral vascular angioplasty status with implants and grafts; Z87.828 Personal history of other (healed) physical injury and trauma; Z87.19 Personal history of other diseases of the digestive system; Z83.3 Family history of diabetes mellitus; Z84.89 Family history of other specified conditions; Z82.49 Family history of ischemic heart disease and other diseases of the circulatory system; Z80.9 Family history of malignant neoplasm, unspecified
CPT/HCPCS: 27447; 97161; 97165; 64448; 76942; 80053; 85025; 88300; 73560; C1713; C1776; J2250; J0171; J1100; J0690 ×2; J2405; J1885; J2795 ×2; J2704; J0735